=== PATIENT | female | born 1985 | race Caucasian/White ===

== ENCOUNTER 2017-06-16 17:59 | Emergency (ER) | payer OTHER ==
[~2017-06-16] VITALS: Ht 160 cm; Wt 54.1 kg
[~2017-06-16 17:59] MED LIST: BCPILLS PO; CALC500C50 PO; PRED20TA PO
[2017-06-16 18:01] VITALS: PULSE 82; TEMP 36.9; O2SAT 93; Ht 160 cm; Wt 54.1 kg
[2017-06-16] MEDS ORDERED: KETOROLAC TROMETHAMINE 30 MG/ML VIAL IV STA (18:17)
[2017-06-16] MEDS ORDERED: SODIUM CHLORIDE 0.9% 1000ML 2,000 ML IV STA (18:17)
[2017-06-16] MEDS ORDERED: ONDANSETRON INJ 2 MG/ML 2 ML VIAL IV STA ×2 (18:17→19:26)
[2017-06-16] MEDS ORDERED: GI COCKTAIL PO ONE (18:30)
[2017-06-16] MEDS ORDERED: ZLF/100 PO (18:37)
--- NOTE | 2017-06-16 18:38 | EMERGENCY ROOM VISIT NOTE ---
History Report prepared by Lona: Bc Amin Under the Supervision of: Dr. Anish Shetty D.O. First contact with patient: 18:05 Chief Complaint: VOMITING Stated Complaint: VOMITING History of Present Illness The patient is a 32 year old female who presents to the Emergency Room with complaints of intermittent nausea and vomiting starting 4 days ago. She has nausea and/or vomiting every time she attempts to eat. The patient also has mid- abdominal pain which occurs soon after eating. She does not have any abdominal pain when she does not eat. The patient has shortness of breath when the pain comes on but does not have any difficulty breathing without the pain. She also had diarrhea 4 days ago which resolved after a day. She had a small bowel movement yesterday. The patient denies any history of similar symptoms. She has a history of tubal ligation but denies any history of any other abdominal surgeries. 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 She did not have any known recent ill contacts. The patient denies fevers, cough, runny nose, chest pain, urinary symptoms, blood in stool, or any other complaints. She currently has her menstrual period but denies any abnormal vaginal bleeding or discharge. Source of History: patient Onset: 4 days ago Position: other (global) Quality: other (nausea and vomiting) Timing: intermittent Associated Symptoms: + abdominal pain, + diarrhea (resolved), No fevers, No cough, No chest pain, No urinary symptoms Review of Systems See HPI for pertinent positives & negatives. A total of 10 systems reviewed and were otherwise negative. Past Medical & Surgical Medical Problems: (1) Asthma (2) Kidney stone (3) Ethel Teeth Removal Family History Cancer Hypertension Kidney disease Social History Smoking Status: Current Every Day Smoker Alcohol Use: occasionally Marital Status: single Housing Status: lives with family Occupation Status: employed Current/Historical Medications Scheduled Ondansetron Hcl (Zofran), 4 MG PO PRN Sertraline HCl (Sertraline HCl), 100 MG PO DAILY Allergies Coded Allergies: No Known Allergies (Verified , 03/06/16) Physical Exam Vital Signs Date Time Temp Pulse Resp B/P (MAP) Pulse Ox O2 Delivery O2 Flow Rate FiO2 06/16/17 20:26 150/93 06/16/17 18:01 36.9 82 22 155/107 93 Room Air Physical Exam GENERAL: Sitting up in bed, disheveled , nontoxic, in no acute distress. EYE EXAM: normal conjunctiva OROPHARYNX: no exudate, no erythema, lips, buccal mucosa, and tongue normal and mucous membranes are dry NECK: supple, no nuchal rigidity, no adenopathy, non-tender LUNGS: Clear to auscultation. Normal chest wall mechanics HEART: no murmurs, S1 normal and S2 normal ABDOMEN: abdomen soft, minimal tenderness in the epigastric region, normo- active bowel sounds, no masses, no rebound or guarding. BACK: Back is symmetrical on inspection and there is no deformity, no midline tenderness, no CVA tenderness. SKIN: no rashes and no bruising UPPER EXTREMITIES: upper extremities are grossly normal. LOWER EXTREMITIES: No pitting edema. NEURO EXAM: Normal sensorium, cranial nerves II-XII grossly intact, normal speech, no gross weakness of arms, no gross weakness of legs. Medical Decision & Procedures ER Provider Diagnostic Interpretation: X-ray and US results as stated below per my review and the radiologist's interpretation: ABDOMEN LIMITED (US) HISTORY: Pain. Nausea. epigastric abd poain . COMPARISON: None. FINDINGS: Pancreas: The pancreas demonstrates a normal echotexture. Liver: Unremarkable. Gallbladder: No gallbladder wall thickening. No gallstones. CBD: 4 mm Right kidney: No hydronephrosis. IMPRESSION: No significant abnormality identified within the within the right upper quadrant. The above report was generated using voice recognition software. It may contain grammatical, syntax or spelling errors. Electronically signed by: Bandar Mueller M.D. 06/16/2017 7:13 PM Dictated Date/Time: 06/16/2017 7:13 PM ABDOMEN 2VIEW W/PA CHEST RTN CLINICAL HISTORY: n/v pain. Nausea. COMPARISON STUDY: 03/06/2016 FINDINGS: The soft tissues, psoas shadows, renal outlines and intestinal gas pattern appear normal. There is no evidence for bowel obstruction. There is no evidence for free intraperitoneal air. No abnormal abdominal calcifications are seen. A frontal view of the chest was performed and is unremarkable. IMPRESSION: Normal study. The above report was generated using voice recognition software. It may contain grammatical, syntax or spelling errors. Electronically signed by: Bandar Mueller M.D. 06/16/2017 7:28 PM Dictated Date/Time: 06/16/2017 7:28 PM Laboratory Results 06/16/17 18:29 Red Blood Count 5.03, Mean Corpuscular Volume 89.7, Mean Corpuscular Hemoglobin 32.6, Mean Corpuscular Hemoglobin Concent 36.4, Mean Platelet Volume 10.1, Neutrophils (%) (Auto) 57.7, Lymphocytes (%) (Auto) 27.1, Monocytes (%) (Auto) 12.2, Eosinophils (%) (Auto) 2.4, Basophils (%) (Auto) 0.5, Neutrophils # (Auto ) 4.63, Lymphocytes # (Auto) 2.17, Monocytes # (Auto) 0.98, Eosinophils # (Auto ) 0.19, Basophils # (Auto) 0.04 06/16/17 18:29 Test 06/16/17 18:29 06/16/17 18:40 White Blood Count 8.02 K/uL (4.8-10.8) Red Blood Count 5.03 M/uL (4.2-5.4) Hemoglobin 16.4 g/dL (12.0-16.0) Hematocrit 45.1 % (37-47) Mean Corpuscular Volume 89.7 fL (80-100) Mean Corpuscular Hemoglobin 32.6 pg (25-34) Mean Corpuscular Hemoglobin Concent 36.4 g/dl (32-36) Platelet Count 257 K/uL (130-400) Mean Platelet Volume 10.1 fL (7.4-10.4) Neutrophils (%) (Auto) 57.7 % Lymphocytes (%) (Auto) 27.1 % Monocytes (%) (Auto) 12.2 % Eosinophils (%) (Auto) 2.4 % Basophils (%) (Auto) 0.5 % Neutrophils # (Auto) 4.63 K/uL (1.4-6.5) Lymphocytes # (Auto) 2.17 K/uL (1.2-3.4) Monocytes # (Auto) 0.98 K/uL (0.11-0.59) Eosinophils # (Auto) 0.19 K/uL (0-0.5) Basophils # (Auto) 0.04 K/uL (0-0.2) RDW Standard Deviation 39.6 fL (36.4-46.3) RDW Coefficient of Variation 12.1 % (11.5-14.5) Immature Granulocyte % (Auto) 0.1 % Immature Granulocyte # (Auto) 0.01 K/uL (0.00-0.02) Anion Gap 10.0 mmol/L (3-11) Est Creatinine Clear Calc Drug Dose 66.8 ml/min Estimated GFR () 86.8 Estimated GFR (Non- 74.9 BUN/Creatinine Ratio 14.9 (10-20) Calcium Level 9.7 mg/dl (8.5-10.1) Total Bilirubin 0.6 mg/dl (0.2-1) Direct Bilirubin 0.2 mg/dl (0-0.2) Aspartate Amino Transf (AST/SGOT) 21 U/L (15-37) Alanine Aminotransferase (ALT/SGPT) 35 U/L (12-78) Alkaline Phosphatase 59 U/L (45-117) Total Protein 8.2 gm/dl (6.4-8.2) Albumin 4.7 gm/dl (3.4-5.0) Lipase 162 U/L (73-393) Urine Color YELLOW Urine Appearance CLEAR (CLEAR) Urine pH 8.0 (4.5-7.5) Urine Specific [place] 1.011 (1.000-1.030) Urine Protein NEG (NEG) Urine Glucose (UA) NEG (NEG) Urine Ketones NEG (NEG) Urine Occult Blood TRACE (NEG) Urine Nitrite NEG (NEG) Urine Bilirubin NEG (NEG) Urine Urobilinogen NEG (NEG) Urine Leukocyte Esterase NEG (NEG) Urine WBC (Auto) 0 /hpf (0-5) Urine RBC (Auto) 0-4 /hpf (0-4) Urine Hyaline Casts (Auto) 0 /lpf (0-5) Urine Epithelial Cells (Auto) 10-20 /lpf (0-5) Urine Bacteria (Auto) NEG (NEG) Urine Test NEG (NEG) Laboratory results per my review. Medications Administered Medications (Trade) Dose Ordered Sig/Jayme Route Start Time Stop Time Status Last Admin Dose Admin Sodium Chloride 2,000 ml @ 999 mls/hr Q2H1M STAT IV 06/16/17 18:17 06/16/17 20:17 DC 06/16/17 18:17 999 MLS/HR Ondansetron HCl (Zofran Inj) 4 mg NOW STAT IV 06/16/17 18:17 06/16/17 18:19 DC 06/16/17 18:17 4 MG Ketorolac Tromethamine (Toradol Inj) 30 mg NOW STAT IV 06/16/17 18:17 06/16/17 18:20 DC 06/16/17 18:17 30 MG Miscellaneous Medication (Gi Cocktail) 24 ml NOW ONCE PO 06/16/17 18:30 06/16/17 18:31 DC 06/16/17 18:30 24 ML Lidocaine HCl (Viscous Lidocaine 2% Soln) 20 ml STK-MED ONCE .ROUTE 06/16/17 18:43 06/16/17 18:44 DC 06/16/17 18:43 20 ML Al Hydroxide/Mg Hydroxide (Maalox Susp) 30 ml STK-MED ONCE .ROUTE 06/16/17 18:43 06/16/17 18:44 DC 06/16/17 18:43 30 ML Ondansetron HCl (Zofran Inj) 4 mg NOW STAT IV 06/16/17 19:26 06/16/17 19:27 DC 06/16/17 19:31 4 MG Metoclopramide HCl (Reglan Inj) 5 mg NOW STAT IV 06/16/17 19:26 06/16/17 19:27 DC 06/16/17 19:31 5 MG ED Course ED COURSE: Vital signs were reviewed and showed hypertensive The patients medical record was reviewed The above diagnostic studies were performed and reviewed. ED treatments and interventions as stated above. 1804: The patient was evaluated in room C08. A complete history and physical examination was performed. 1816: Toradol Inj 30 mg IV, Zofran Inj 4 mg IV, Sodium Chloride 2000 ml @ 999 mls/hr IV 1829: GI Cocktail 24 ml PO 1842: I reevaluated the patient. She was sitting up in bed, texting. She is doing well. She gave a urine sample. 1925: Reglan Inj 5 mg IV, Zofran Inj 4 mg IV 2022: Upon reevaluation, the patient is resting comfortably.I discussed my findings with the patient and she understands and agrees with the treatment plan. Based on the patients age, coexisting illnesses, exam and lab findings the decision to treat as an outpatient was made. The patient remained stable while under my care. The patient appeared well at the time of discharge. Medical Decision Medication Reconciliation: I attest that I have personally reviewed the patient' s current medication list. Blood Pressure Screening: The patient was found to have a slightly elevated blood pressure due to circumstances. I do not believe that the patient requires hypertension monitoring. Differential diagnoses includes but is not limited to gastritis, peptic ulcer disease, GERD, gallbladder disease, pancreatitis, small bowel obstruction, acute coronary syndrome, pericarditis, ischemic bowel, irritable bowel disease, irritable bowel syndrome, appendicitis, diverticulitis, malignancy, hernia, urinary tract infection, torsion, /ectopic (if female), perforation, trauma, infectious. Patient is a 32-year-old female who presents the ER for epigastric abdominal pain which has been going on since this past Saturday. On Saturday, she had persistent nausea vomiting and diarrhea. Diarrhea has resolved. She notes that now it starts/occurs following eating. Only previous abdominal surgery is a tubal ligation. Currently has her period. Abdominal exam is benign. No fevers. Negative obstruction series. Ultrasound of right upper quadrant was negative. No significant leukocytosis. BMP along with LFTs, bilirubin and lipase is negative. UA was negative. was negative. Patient was given IV fluids, Zofran and Reglan. She has significant improvement of her symptoms. She was discharged follow-up with her PCP as this is likely a gastroenteritis. Discussed with Pt concerning signs and symptoms to watch out for. Pt was instructed to follow up with their PCP and discussed with the patient their option to return to the ED at anytime for persistent or worsening symptoms. The appropriate anticipatory guidance and out-patient management, including indications for return to the emergency department, were explained at length to the patient and understood. Impression Primary Impression: Vomiting Additional Impression: Abdominal pain Scribe Attestation The scribe's documentation has been prepared under my direction and personally reviewed by me in its entirety. I confirm that the note above accurately reflects all work, treatment, procedures, and medical decision making performed by me. Departure Information Dispostion Home / Self-Care Prescriptions Ondansetron Hcl (ZOFRAN) 4 Mg Tab 4 MG PO PRN for Nausea, #20 TAB Prov: Anish Shetty, DO 06/16/17 Referrals No Doctor, Assigned (PCP) Forms HOME CARE DOCUMENTATION FORM, IMPORTANT VISIT INFORMATION Patient Instructions Abdominal Pain - [facility], ED Nausea Vomiting, [facility] Additional Instructions Please follow up with your primary care doctor with in the next 24 hours. Any worsening of your symptoms, please return to the ED immediately. This includes fevers greater than 100.4, persistent nausea vomiting, unable to eat or drink, worsening abdominal pain, or any other concerning signs or symptoms from your standpoint. Please take Zofran as prescribed for nausea/vomiting. Problem Qualifiers Primary Impression: Vomiting Vomiting type: unspecified Vomiting Intractability: unspecified Nausea presence: unspecified Qualified Codes: R11.10 - Vomiting, unspecified Additional Impression: Abdominal pain Abdominal location: unspecified location Qualified Codes: R10.9 - Unspecified abdominal pain
[2017-06-16 18:40] LABS: BASO % 0.5 %; BASO ABS # 0.04 K/uL (0-0.2); COMPLETE YES; EOS % 2.4 %; HEMATOCRIT 45.1 % (37-47); IG% 0.1 %; LYMPH % 27.1 %; LYMPH ABS # 2.17 K/uL (1.2-3.4); MEAN CELL VOLUME 89.7 fL (80-100); MEAN CORPUSCULAR HEMOGLOBIN 32.6 pg (25-34); MEAN CORPUSCULAR HGB CONC 36.4 g/dl (32-36); MEAN PLATELET VOLUME 10.1 fL (7.4-10.4); MONO % 12.2 %; NEUT % 57.7 %; PLATELET COUNT 257 K/uL (130-400); RED BLOOD COUNT 5.03 M/uL (4.2-5.4); WHITE BLOOD COUNT 8.02 K/uL (4.8-10.8)
[2017-06-16] MEDS ORDERED: LIDOCAINE HCL 2% VISC SOLN 20 ML UDC ONE (18:43)
[2017-06-16] MEDS ORDERED: ALUMINUM/MAGNESIUM SUSP 30 ML UDC ONE (18:43)
[2017-06-16 18:57] LABS: BUN/CREATININE RATIO 14.9 (10-20); CREATININE 0.99 mg/dl (0.60-1.20); POTASSIUM 3.4 mmol/L (3.5-5.1)
[2017-06-16 18:58] LABS: CALCIUM 9.7 mg/dl (8.5-10.1)
[2017-06-16 19:09] LABS: URINE APPEARANCE CLEAR (CLEAR); URINE BILIRUBIN NEG (NEG); URINE COLOR YELLOW; URINE NITRITE NEG (NEG); URINE SPECIFIC GRAVITY 1.011 (1.000-1.030); UROBILINOGEN NEG (NEG); ZZUR CULT IF INDIC CLEAN CATCH NO
[2017-06-16 19:10] LABS: MANUAL MICROSCOPIC REQUIRED? NO; REVIEW REQ? NO
--- NOTE | 2017-06-16 19:15 | DIAGNOSTIC IMAGING REPORT ---
ABDOMEN LIMITED (US) HISTORY: Pain. Nausea. epigastric abd poain . COMPARISON: None. FINDINGS: Pancreas: The pancreas demonstrates a normal echotexture. Liver: Unremarkable. Gallbladder: No gallbladder wall thickening. No gallstones. CBD: 4 mm Right kidney: No hydronephrosis. IMPRESSION: No significant abnormality identified within the within the right upper quadrant. The above report was generated using voice recognition software. It may contain grammatical, syntax or spelling errors. Electronically signed by: Bandar Mueller M.D. 06/16/2017 7:13 PM Dictated Date/Time: 06/16/2017 7:13 PM
[2017-06-16] MEDS ORDERED: METOCLOPRAMIDE HCL INJ 5 MG/ML 2 ML VIAL IV STA (19:26)
--- NOTE | 2017-06-16 19:30 | DIAGNOSTIC IMAGING REPORT ---
ABDOMEN 2VIEW W/PA CHEST RTN CLINICAL HISTORY: n/v pain. Nausea. COMPARISON STUDY: 03/06/2016 FINDINGS: The soft tissues, psoas shadows, renal outlines and intestinal gas pattern appear normal. There is no evidence for bowel obstruction. There is no evidence for free intraperitoneal air. No abnormal abdominal calcifications are seen. A frontal view of the chest was performed and is unremarkable. IMPRESSION: Normal study. The above report was generated using voice recognition software. It may contain grammatical, syntax or spelling errors. Electronically signed by: Bandar Mueller M.D. 06/16/2017 7:28 PM Dictated Date/Time: 06/16/2017 7:28 PM
[2017-06-16 20:26] VITALS: BP 150/93
[2017-06-16] MEDS ORDERED: ONDA4TAB65 PO (20:29)
== END 2017-06-16 20:44 | disposition home or self-care (01) ==
LOC: C.EDB 18:00 → C.EDC 20:44
DX: R11.10 Vomiting, unspecified (principal); R10.9 Unspecified abdominal pain; R19.7 Diarrhea, unspecified; J45.909 Unspecified asthma, uncomplicated; F17.200 Nicotine dependence, unspecified, uncomplicated; Z87.442 Personal history of urinary calculi; Z98.818 Other dental procedure status; Z82.49 Family history of ischemic heart disease and other diseases of the circulatory system

== ENCOUNTER → 2017-07-04 | Outpatient (CLI) | payer OTHER ==
[~2017-07-04] MED LIST changes: -BCPILLS PO; -CALC500C50 PO; -PRED20TA PO; +SINCALIDE IV ONE; +SODIUM CHLORIDE 0.9% IV ONE; +ZLF/100 PO
--- NOTE | 2017-07-04 12:41 | DIAGNOSTIC IMAGING REPORT ---
NUCLEAR MEDICINE HEPATOBILIARY SCAN WITH EJECTION FRACTION HISTORY: Generalized abdominal pain. COMPARISON: Abdominal ultrasound 06/16/2017. TECHNIQUE: Immediately following the intravenous administration of 5.1 mCi Tc-99m Choletec, dynamic anterior abdominal imaging pre/post 1.1 mcg of Kinevac was performed. FINDINGS: Uniform hepatic tracer accumulation is shown. Prompt intrahepatic biliary excretion is seen. The gallbladder, common bile duct, and small bowel are all visualized by 30 minutes. This appearance represents the normal sequence of biliary excretion. The gall bladder ejection fraction following administration of Kinevac was 73% (normal >35%). IMPRESSION: 1. No evidence for cystic duct obstruction. 2. Gallbladder ejection fraction calculated to be 73 %. Electronically signed by: Rex Stout M.D. 07/04/2017 12:39 PM Dictated Date/Time: 07/04/2017 12:39 PM
== END | disposition home or self-care (01) ==
LOC: C.NUCL 10:02
PROVIDERS: ATTEND Surgery
DX: R10.11 Right upper quadrant pain (principal)